=== PATIENT | male | born 1950 | race Caucasian/White ===

== ENCOUNTER 2016-07-23 11:36 | Day surgery (SDC) | payer OTHER ==
[2016-07-21 15:40] VITALS: BMI 30.7
[~2016-07-23 11:36] MED LIST: LACTATED RINGERS 1,000 ML IV SCH; LIDOCAINE 1% 20 ML VIAL (10MG/ML) FOR IV START INTRADERMA PRN
[2016-07-23 12:11] VITALS: TEMP 98
[2016-07-23] MEDS ORDERED: LACTATED RINGERS 1,000 ML IV ONE (12:11)
[2016-07-23] MEDS ORDERED: PROPOFOL 10 MG/ML 20 ML VIAL IV ONE (12:41)
[2016-07-23] MEDS ORDERED: LIDOCAINE 1% INJ 10MG/ML (20 ML MDV) ONE (12:41)
--- NOTE | 2016-07-23 13:00 | P.PCN ---
Date of Procedure: 07/23/16 Preoperative Diagnosis: Postoperative Diagnosis: Procedure(s) Performed: BRIEF HISTORY: Patient is a 66-year-old pleasant white male scheduled for an elective colonoscopy as a part of screening for colorectal neoplasia. PROCEDURE PERFORMED: Colonoscopy with snare polypectomy. PREOPERATIVE DIAGNOSIS: Screening for colon cancer. IV sedation per Anesthesia. PROCEDURE: After informed consent was obtained, the patient, was brought into the endoscopy unit. IV sedation was administered by Anesthesia under continuous monitoring. Digital rectal examination was normal. Initially the Olympus CF- 160 flexible video colonoscope was then inserted in the rectum, gradually advanced into the cecum without any difficulty. Careful examination was performed as the scope was gradually being withdrawn. Ileocecal valve and the appendiceal orifice were visualized and appeared normal. Prep was excellent. Mucosa of the cecum, ascending colon, appeared normal. In the proximal transverse colon there was a 1 cm polyp removed by snare polypectomy. In the descending colon there were 2 polyps measuring 5 mm in size both of which were removed by snare polypectomy. The rest of the transverse colon, descending colon, sigmoid colon, and rectum appeared normal. Retroflexion was performed in the rectum and no lesions were seen. The patient tolerated the procedure well. IMPRESSION: 1 cm proximal transverse colon polyp status post polypectomy 5 mm 2 descending colon polyps status post polypectomy RECOMMENDATIONS: Findings of this examination were discussed with the patient as well as his family. He was advised to follow with the biopsy results. If the biopsy shows a tubular adenoma he can have a repeat colonoscopy in 5 years. Implants: Indications for Procedure: Operative Findings: Description of Procedure:
[2016-07-23 13:07] VITALS: RESP 16
[2016-07-23 13:32] VITALS: BP 152/87; PULSE 68
== END 2016-07-23 13:42 | disposition home or self-care (01) ==
LOC: ORWHC2ENDO 11:36
PROVIDERS: ATTEND Internal Medicine Gastroenterology
DX: Z12.11 Encounter for screening for malignant neoplasm of colon (principal); D12.4 Benign neoplasm of descending colon; D12.3 Benign neoplasm of transverse colon; I10 Essential (primary) hypertension; E78.5 Hyperlipidemia, unspecified; M06.9 Rheumatoid arthritis, unspecified; Z79.891 Long term (current) use of opiate analgesic; Z79.899 Other long term (current) drug therapy
CPT/HCPCS: 88305; 45385; J2001; J2704

== ENCOUNTER → 2020-03-29 | Outpatient (CLI) | payer MEDICARE ==
[2020-03-29 12:43] LABS: HCT 43.8 % (39.0-53.0); HGB 14.6 gm/dL (13.0-17.5); MCH 31.7 pg (25.0-35.0); MCHC 33.5 g/dL (31.0-37.0); MCV 94.9 fL (80.0-100.0); Mean Platelet Volume 6.5; Platelet Count 227 k/uL (150-450); RBC 4.61 m/uL (4.30-5.90); RDW 14.1 % (11.5-15.5)
[2020-03-29 12:54] LABS: ALT 31 U/L (4-49); AST 39 U/L (17-59); African American GFR (CKD) >90 (>60 ml/min/1.73 sqM); Albumin 4.4 g/dL (3.5-5.0); Alkaline Phosphatase 76 U/L (38-126); Anion Gap 6 mmol/L; Blood Urea Nitrogen 16 mg/dL (9-20); Calcium 9.6 mg/dL (8.4-10.2); Carbon Dioxide 29 mmol/L (22-30); Chloride 102 mmol/L (98-107); Glucose 100 mg/dL (74-99); Non-African American GFR(CKD) >90 (>60 ml/min/1.73 sqM); Potassium 4.8 mmol/L (3.5-5.1); Sodium 137 mmol/L (137-145); Total Bilirubin 1.2 mg/dL (0.2-1.3); Total Protein 7.2 g/dL (6.3-8.2)
[2020-03-29 13:02] LABS: INR 0.9 (<1.2); Prothrombin Time 9.5 sec (9.0-12.0)
[2020-03-29 13:21] LABS: Appearance,Urine Clear (Clear); Bilirubin,Urine Negative (Negative); Blood,Urine Small (Negative); Color,Urine Yellow; Glucose,Urine (UA) Negative (Negative); Ketones,Urine Negative (Negative); Leukocyte Esterase,Urine Negative (Negative); Mucus,Urine Rare /hpf; Nitrite,Urine Negative (Negative); PH, Urine 5.5 (5.0-8.0); Protein,Urine Negative (Negative); RBC,Urine <1 /hpf (0-5); Specific Gravity,Urine 1.012 (1.001-1.035); Squamous Epithelial Cell,Urine <1 /hpf (0-4); Urobilinogen,Urine <2.0 mg/dL (<2.0); WBC,Urine 1 /hpf (0-5)
[2020-03-29 14:15] LABS: Partial Thromboplastin Time 20.7 sec (22.0-30.0)
== END | disposition home or self-care (01) ==
LOC: LABPAT 10:50
PROVIDERS: ATTEND Orthopaedic Surgery
DX: Z01.818 Encounter for other preprocedural examination (principal); Z01.812 Encounter for preprocedural laboratory examination
CPT/HCPCS: 36415; 80053; 81001; 85027; 85610; 85730; 87070

== ENCOUNTER 2020-04-09 07:18 | Day surgery (SDC) | payer MEDICARE ==
[2020-04-04 15:46] VITALS: BMI 31.3
[~2020-04-09 07:18] MED LIST changes: +ACETAMINOPHEN TAB 500 MG TAB PO PRN; +DEXAMETHASONE SOD PHOSPHATE 4 MG/ML 1 ML VIAL IV ONE; +GABAPENTIN 300 MG CAP PO PRN; +HYDROmorphone 0.5 MG/0.5 ML SYRINGE IVP PRN; +LIDOCAINE 1% (10MG/ML) FOR IV START INTRADERMA PRN; -LIDOCAINE 1% 20 ML VIAL (10MG/ML) FOR IV START INTRADERMA PRN; +MELOXICAM 7.5 MG TAB PO PRN; +MIDAZOLAM 2 MG/2 ML VIAL IV PRN; +ONDANSETRON 4 MG/2 ML VIAL IVP ONE; +TRANEXAMIC ACID 1,000 MG in SODIUM CHLORIDE 0.9% 100 ML IVPB PRN; +fentaNYL (PF) 50 MCG/ML 2 ML AMP IV PRN
[2020-04-09] MEDS ORDERED: fentaNYL (PF) 50 MCG/ML 2 ML AMP IV ONE (08:19)
[2020-04-09] MEDS ORDERED: MIDAZOLAM 2 MG/2 ML VIAL IV ONE (08:19)
[2020-04-09] MEDS: ROPIVACAINE 246.25 MG, EPINEPHrine 0.5 MG, KETOROLAC 30 MG, cloNIDine HCL/PF 80 MCG, WA... MISCELLANE PRN ×15 (09:01→10:42)
[2020-04-09] MEDS ORDERED: HYDROmorphone 0.5 MG/0.5 ML SYRINGE IVP PRN ×2 (09:11)
[2020-04-09] MEDS ORDERED: ONDANSETRON 4 MG/2 ML VIAL IVP PRN (09:11)
[2020-04-09] MEDS ORDERED: NALOXONE 0.4 MG/ML 1 ML VIAL IV PRN (09:11)
[2020-04-09] MEDS ORDERED: HYDROmorphone 0.2 MG/1 ML SYRINGE IVP PRN (09:11)
[2020-04-09] MEDS ORDERED: HYDROcodone/APAP 7.5-325MG 1 EACH TAB PO PRN ×2 (09:13)
[2020-04-09] MEDS ORDERED: SODIUM CHLORIDE 0.9% 1,000 ML IV SCH (09:15)
[2020-04-09] MEDS ORDERED: LIDOCAINE 1% INJ 10MG/ML (20 ML MDV) ONE (09:23)
[2020-04-09] MEDS ORDERED: METOPROLOL TARTRATE 5 MG/5 ML VIAL IVP ONE (09:23)
[2020-04-09] MEDS ORDERED: SODIUM CHLORIDE 0.9% IRRIG 1,000 ML BTL IRRIGATION ONE (09:23)
[2020-04-09] MEDS ORDERED: TRANEXAMIC ACID 1,000 MG/10 ML VIAL ONE (09:23)
[2020-04-09] MEDS ORDERED: HEPARIN SODIUM,PORCINE 10,000 UNIT/ML 1 ML VIAL ONE (09:23)
[2020-04-09] MEDS ORDERED: MIDAZOLAM 2 MG/2 ML VIAL ONE ×2 (09:23→10:10)
[2020-04-09] MEDS ORDERED: HYDROmorphone (PF) 1 MG/ML ONE (09:23)
[2020-04-09] MEDS ORDERED: fentaNYL (PF) 50 MCG/ML 2 ML AMP ONE (09:23)
[2020-04-09] MEDS ORDERED: SODIUM CHLORIDE 0.9% 100 ML BAG ONE (09:23)
[2020-04-09] MEDS ORDERED: ROCURONIUM 10 MG/ML (5 ML VIAL) IV ONE ×2 (09:23→10:10)
[2020-04-09] MEDS ORDERED: PROPOFOL 10 MG/ML 20 ML VIAL IV ONE ×2 (09:23→10:10)
[2020-04-09] MEDS ORDERED: ceFAZolin 3,000 MG in SODIUM CHLORIDE 0.9% IRRIGATIO 3,000 ML IRRIGATION ONE (09:28)
--- NOTE | 2020-04-09 10:48 | P.OP ---
Date of Procedure: 04/09/20 Preoperative Diagnosis: Severe osteoarthritis right hip Postoperative Diagnosis: Severe osteoarthritis right hip Procedure(s) Performed: Right total hip arthroplasty with a direct anterior approach Implants: [employer] Polarstem standard size 4 [employer] R3, 3 hole hemispherical acetabular shell, 52 mm [employer] Reflection 6.5 mm cancellus screw, 20 mm 2 [employer] R3, XLPE 20 acetabular liner [employer]hew Oxinium femoral head 36 m, +0 All components were press-fit. The articulation is Oxinium on polyethylene. Anesthesia: GETA Surgeon: Jerardo Torres Retail Cashier #1: Ira Herrera Estimated Blood Loss (ml): 250 (65 mL returned with Cell Saver) Pathology: other (Femoral head) Condition: stable Disposition: PACU Indications for Procedure: After failure of conservative treatment we discussed the surgical and nonsurgical treatment options at length. Patient wishes to proceed with a total hip arthroplasty with a direct anterior approach. Complications specific to this procedure were discussed at length, including but not limited to infection, leg length discrepancy, dislocation, nerve injury, and fracture. Covid-19 was also discussed at length with the patient, and they are aware of the current policies and procedures. The patient was given the option of delaying surgery, but they elect to proceed knowing these risks. Patient is aware of all these complications and informed consent was obtained Operative Findings: The operative findings are consistent with severe osteoarthritis of the right hip Description of Procedure: Patient was seen and evaluated in the preoperative area and the consent was reviewed. The operative site was marked with a skin marker. The patient was then brought to the operating room and given preoperative antibiotics intravenously. 1 g of Tranexamic acid was also given intravenously. A general anesthetic was administered by the anesthesia department. The patient was then placed on the [place] table with the bony prominences well-padded. The hip area was then prepped with a ChloraPrep solution and draped in the usual sterile fashion. A universal timeout was then performed, which confirmed the patient's name, surgical site, ALLERGIES, and procedure being performed on the consent. Next the incision site was located at the flexion crease of the right hip. The skin and subcutaneous tissues were sharply incised. Incision was carefully dissected down to the fascia overlying the tensor fascia luis muscle. This fascia was then incised in line with the incision. Care was taken to stay laterally in order to avoid injuring the lateral femoral cutaneous nerve. Next, using blunt finger dissection, the tensor fascia luis muscle was dissected off its investing fascia. The muscle was then carefully retracted laterally with a cobra retractor over the lateral neck of the femur. Next, the circumflex vessels were identified and cauterized using the AquaMantis device. The anterior hip capsule was then exposed. The capsule was then opened and an inverted T fashion. Cobra retractors were then placed intracapsularly. The retractors were maintained intracapsular throughout the procedure. The proximal femur was then visualized. A small amount of traction was placed on the leg. The femoral neck was then osteotomized appropriate level above the lesser trochanter. A small wedge of bone was then removed from the remaining femoral head. Next, using a corkscrew the femoral head was removed from the acetabulum. On gross visual inspection, the femoral head had complete loss of articular cartilage and multiple periarticular osteophytes. The femoral head was then measured. Attention was then turned to the acetabulum. The acetabulum was exposed and any remaining labrum was excised. Sequential reaming of the acetabulum was performed using fluoroscopic guidance until there was a good bed of bleeding cancellus bone. When the appropriate size was reached, a trial was then placed. The position and fit of the trial was checked with fluoroscopy. The trial was then removed. Then, using fluoroscopic guidance, the final implant was impacted at 20 of anteversion and 40 of abduction, and fully seated in the acetabulum. 2 screws were then placed in the acetabulum. Again fluoroscopy was used to check position of the screws. Next, the liner was then impacted, with a 20 elevated liner located in the anterior superior quadrant. Component locking was confirmed. Attention was then directed to the femur. With the aid of the [place] table, the femur was externally rotated to approximately 130, extended, and adducted under the opposite leg. A side hook was then placed under the proximal femur, and the side hook elevator was used to elevate the proximal femur while releasing the capsule. Retractors were then placed. A capsular release was performed, as well as a release of the conjoined tendon, which afforded excellent visualization of the proximal femur. Next, a box osteotome was used to lateralize the proximal femur. A plug shaper hand was then used to locate the femoral canal. Sequential broaching was then performed with appropriate size w hich afforded excellent fixation in the proximal femur. A trial was then placed with appropriate head and neck, and the hip was gently reduced with the aid of the [place] table. Fluoroscopy was then used to check position of the components, as well as to ensure equal leg lengths. The hip was then gently dislocated and the trials were then removed. Final implants were then impacted and the hip was again reduced. Final fluoroscopic x-rays confirmed that the components were in anatomic position, as well as equal leg lengths. The hip was also taken through range of motion, and found to be stable. The hip was then copiously irrigated with antibiotic solution with pulsatile lavage. The hip was then irrigated with Irrisept solution. The soft tissues were then injected with a ropivacaine solution, which consisted of 246.25 mg of ropivacaine, 0.5 mg of epinephrine, 30 mg of Toradol, 80 g of clonidine, and 48.45 mL of sterile water, for a total of 100 mL of fluid injected. A second dose of 1 g of Tranexamic acid was also given intravenously. Any blood collected by Cell Saver was then returned to the patient at this time. The fascia was then closed with 2-0 strata fix suture. The subcutaneous tissue was closed with 3-0 Vicryl. The subcuticular tissue was closed with 3-0 strata fix suture. The skin was then closed with Exofin skin glue. After the glue and dried, and Optifoam silver impregnated dressing was applied. The patient was then transferred to the recovery room in stable condition. The lead dental assistant DIANA Lopez was required due to the complexity of surgery, and the need for skilled insurance sales assistant for positioning, draping, exposure, retraction, and closure of the wound.
[2020-04-09 11:14] VITALS: TEMP 97
--- NOTE | 2020-04-09 11:14 | XR ---
EXAMINATION TYPE: XR Hip Limited RT, FL guidance operating room DATE OF EXAM: 04/09/2020 Comparison: None Clinical History: 69-year-old male RT ANTERIOR HIP Findings: Intraoperative fluoroscopic images demonstrating right apical arthroplasty. FLUOROSCOPY Fluoroscopy time of 16 seconds was used during right hip replacement. 2 image/s document/s ulises cantor. Impression: Intraoperative fluoroscopy as above.
--- NOTE | 2020-04-09 11:43 | XR ---
EXAMINATION TYPE: XR Hip Limited RT DATE OF EXAM: 04/09/2020 Comparison: None Clinical History: 69-year-old male Status post hip surgery, assess surgical alignment Findings: Postoperative change of right hip arthroplasty. Both the acetabular cup and femoral stem components o f the prosthesis are well seated without periprosthetic fracture. Alignment grossly anatomic. Scatter ed soft tissue air. Impression: Uncomplicated postoperative appearance right total hip arthroplasty.
[2020-04-09 12:59] VITALS: RESP 18
[2020-04-09 14:42] VITALS: BP 138/81; PULSE 85
== END 2020-04-09 15:44 | disposition home health service (06) ==
LOC: OR 07:18
PROVIDERS: ATTEND Orthopaedic Surgery
DX: M16.11 Unilateral primary osteoarthritis, right hip (principal); D75.89 Other specified diseases of blood and blood-forming organs; M25.751 Osteophyte, right hip; I10 Essential (primary) hypertension; H91.90 Unspecified hearing loss, unspecified ear; M25.512 Pain in left shoulder; R79.9 Abnormal finding of blood chemistry, unspecified; M06.9 Rheumatoid arthritis, unspecified; M54.5 Low back pain; R00.1 Bradycardia, unspecified; Z79.899 Other long term (current) drug therapy; Z79.52 Long term (current) use of systemic steroids; Z97.3 Presence of spectacles and contact lenses; Z87.891 Personal history of nicotine dependence; Z98.890 Other specified postprocedural states; Z79.1 Long term (current) use of non-steroidal anti-inflammatories (NSAID); Z96.659 Presence of unspecified artificial knee joint; Z98.41 Cataract extraction status, right eye; Z98.42 Cataract extraction status, left eye; Z82.49 Family history of ischemic heart disease and other diseases of the circulatory system; Z80.9 Family history of malignant neoplasm, unspecified
CPT/HCPCS: 97162; 86891; 88305; 88311; 73501; 27130; C1776; J2250; J0171; J1644; J1100; J0690 ×2; J2405; J2001; J3010; J1885; J1170; J2795; J2704; J0735; 86850; 86900; 86901

== ENCOUNTER 2020-05-31 10:20 | Emergency (ER) | payer MEDICARE ==
[2020-05-31] MEDS ORDERED: ACETAMINOPHEN TAB 500 MG TAB PO STA (11:22)
[2020-05-31] MEDS ORDERED: IBUPROFEN 600 MG TAB PO STA (11:23)
[2020-05-31 12:01] LABS: ALT 46 U/L (4-49); African American GFR (CKD) >90 (>60 ml/min/1.73 sqM); Albumin 3.5 g/dL (3.5-5.0); Anion Gap 10 mmol/L; Blood Urea Nitrogen 15 mg/dL (9-20); C Reactive Protein 75.7 mg/L (<10.0); Calcium 8.4 mg/dL (8.4-10.2); Carbon Dioxide 24 mmol/L (22-30); Chloride 92 mmol/L (98-107); Glucose 108 mg/dL (74-99); Non-African American GFR(CKD) >90 (>60 ml/min/1.73 sqM); Sodium 126 mmol/L (137-145); Total Bilirubin 1.2 mg/dL (0.2-1.3); Total Protein 6.7 g/dL (6.3-8.2)
[2020-05-31 12:11] LABS: Alkaline Phosphatase 88 U/L (38-126); Magnesium 1.8 mg/dL (1.6-2.3); Potassium 4.6 mmol/L (3.5-5.1)
--- NOTE | 2020-05-31 12:11 | ED ---
SOB HPI - General Chief Complaint: Shortness of Breath Stated Complaint: Covid +, SOB Time Seen by Provider: 05/31/20 11:17 Source: patient Mode of arrival: ambulatory Limitations: no limitations - History of Present Illness Initial Comments: Patient is a 70-year-old male with history of hypertension, presenting to the emergency Department with complaints of worsening shortness of breath. He states he was exposed to covid a few weeks ago, started having symptoms about 14 days ago. He states he was having some intermittent fevers, some mild cough and shortness of breath. He continues to have a low-grade fever, some nausea, diarrhea. He denies any chest pains. He denies any abdominal pains. He states his appetite continues to be low, he has been trying to drink a lot of water. He took some Tylenol very early this morning. He has no further complaints at this time. Upon arrival to the ER, he is febrile to 102, tachycardia at 115, 93% on room air. - Related Data Home Medications Medication Instructions Recorded Confirmed lisinopriL 20 mg PO HS 04/04/20 04/04/20 Previous Rx's Medication Instructions Recorded Aspirin 325 mg PO BID #60 tab 04/09/20 Celecoxib [CeleBREX] 200 mg PO DAILY 5 Days #5 capsule 04/09/20 Gabapentin 300 mg PO BID 5 Days #10 cap 04/09/20 HYDROcodone/APAP 7.5-325MG [[place] 1 - 2 tab PO Q6H PRN #32 tab 04/09/20 7.5-325] Ondansetron [Zofran ODT] 4 mg PO Q8HR PRN #10 tab 04/09/20 Sennosides [Senokot] 2 tab PO DAILY PRN #60 tablet 04/09/20 Dexamethasone [Decadron] 6 mg PO DAILY 7 Days #7 tablet 05/31/20 Allergies Allergy/AdvReac Type Severity Reaction Status Date / Time No Known Allergies Allergy Verified 05/31/20 10:32 Review of Systems ROS Statement: Those systems with pertinent positive or pertinent negative responses have been documented in the HPI. ROS Other: All systems not noted in ROS Statement are negative. Past Medical History Past Medical History: Hyperlipidemia, Hypertension, Rheumatoid Arthritis (RA) Additional Past Medical History / Comment(s): no Rx for tx b/p History of Any Multi-Drug Resistant Organisms: None Reported Past Surgical History: Orthopedic Surgery Additional Past Surgical History / Comment(s): rt knee arthroscopy,colonoscopy Past Anesthesia/Blood Transfusion Reactions: No Reported Reaction Additional Past Anesthesia/Blood Transfusion Reaction / Comment(s): no hx blood transfusion Past Psychological History: Anxiety, Depression Smoking Status: Never smoker Past Alcohol Use History: None Reported, Heavy Past Drug Use History: None Reported - Past Family History Mother Family Medical History: Cancer Father Family Medical History: Cancer General Exam - General Exam Comments Initial Comments: GENERAL: Patient is well-developed and well-nourished. Patient is nontoxic and in no acute distress. HEAD: Atraumatic, normocephalic. EYES: Pupils equal round and reactive to light, extraocular movements intact, sclera anicteric, conjunctiva are normal. Eyelids were unremarkable. ENT: TMs normal, nares patent, oropharynx clear without exudates. Moist mucous membranes. NECK: Normal range of motion, supple without lymphadenopathy or JVD. LUNGS: Unlabored respirations. Breath sounds clear to auscultation bilaterally and equal. No wheezes rales or rhonchi. HEART: Tachycardia rate and rhythm without murmurs, rubs or gallops. ABDOMEN: Soft, nontender, normoactive bowel sounds. No guarding, no rebound. No masses appreciated. : Deferred MUSCULOSKELETAL: Normal extremities with adequate strength and normal range of motion, no pitting or edema. No clubbing or cyanosis. NEUROLOGICAL: Patient is alert and oriented x 3. Motor and sensory are also intact. Cranial nerves II through XII grossly intact. Symmetrical smile. Normal speech, normal gait. PSYCH: Normal mood, normal affect. SKIN: Warm, Dry, normal turgor, no rashes or lesions noted. Limitations: no limitations Course Vital Signs 05/31/20 05/31/20 05/31/20 10:32 12:52 14:44 Temperature 102 F H 101.3 F H Pulse Rate 115 H 103 H Respiratory 24 20 Rate Blood Pressure 144/74 134/81 O2 Sat by Pulse 93 L 95 91 L Oximetry Medical Decision Making - Medical Decision Making Patient is a 70-year-old male with history of hypertension, presenting today with 2 weeks of covert symptoms, increasing shortness of breath. He continues to have fevers as well. He did arrive febrile, tachycardia today, 93% on room air. Patient's labs show a normal white count, sodium was slightly low at 126, lactic acid was normal, LDH and CRP are elevated, rapid Covid is positive. Chest x-ray shows scattered peripheral infiltrates. She was initially started on 2 L of O2 but we did take him off this, he ambulated without difficulties, stayed at approximately 91-92% in room air. He was given a liter fluids, Zofran and Tylenol and Motrin. He does report improvement in symptoms. Patient will also be given IV steroids. I will continue him on steroids for the next 7 days. He is stable for discharge at this time. Strict return parameters were discussed with the patient and he verbalized understanding. Patient is in agreement with this plan of care. Case discussed with Dr. Ramirez. - Lab Data Result diagrams: 05/31/20 11:34 05/31/20 11:34 Lab Results 05/31/20 05/31/20 05/31/20 Range/Units 10:36 11:34 11:34 WBC 6.8 (3.8-10.6) k/uL RBC 5.32 (4.30-5.90) m/uL Hgb 15.5 (13.0-17.5) gm/dL Hct 46.4 (39.0-53.0) % MCV 87.2 D (80.0-100.0) fL MCH 29.1 (25.0-35.0) pg MCHC 33.4 (31.0-37.0) g/dL RDW 14.5 (11.5-15.5) % Plt Count 246 (150-450) k/uL MPV 7.7 Neutrophils % 81 % Lymphocytes % 8 % Monocytes % 6 % Eosinophils % 0 % Basophils % 0 % Neutrophils # 5.5 (1.3-7.7) k/uL Lymphocytes # 0.6 L (1.0-4.8) k/uL Monocytes # 0.4 (0-1.0) k/uL Eosinophils # 0.0 (0-0.7) k/uL Basophils # 0.0 (0-0.2) k/uL PT 10.2 (9.0-12.0) sec INR 0.9 (<1.2) APTT 23.9 (22.0-30.0) sec Sodium (137-145) mmol/L Potassium (3.5-5.1) mmol/L Chloride (98-107) mmol/L Carbon Dioxide (22-30) mmol/L Anion Gap mmol/L BUN (9-20) mg/dL Creatinine (0.66-1.25) mg/dL Est GFR (CKD-EPI)AfAm (>60 ml/min/1.73 sqM) Est GFR (CKD-EPI)NonAf (>60 ml/min/1.73 sqM) Glucose (74-99) mg/dL Plasma Lactic Acid Tom (0.7-2.0) mmol/L Calcium (8.4-10.2) mg/dL Magnesium (1.6-2.3) mg/dL Total Bilirubin (0.2-1.3) mg/dL AST (17-59) U/L ALT (4-49) U/L Alkaline Phosphatase (38-126) U/L Lactate Dehydrogenase (313-618) U/L C-Reactive Protein (<10.0) mg/L Total Protein (6.3-8.2) g/dL Albumin (3.5-5.0) g/dL Coronavirus (PCR) Detected A (Not Detectd) 05/31/20 05/31/20 Range/Units 11:34 11:34 WBC (3.8-10.6) k/uL RBC (4.30-5.90) m/uL Hgb (13.0-17.5) gm/dL Hct (39.0-53.0) % MCV (80.0-100.0) fL MCH (25.0-35.0) pg MCHC (31.0-37.0) g/dL RDW (11.5-15.5) % Plt Count (150-450) k/uL MPV Neutrophils % % Lymphocytes % % Monocytes % % Eosinophils % % Basophils % % Neutrophils # (1.3-7.7) k/uL Lymphocytes # (1.0-4.8) k/uL Monocytes # (0-1.0) k/uL Eosinophils # (0-0.7) k/uL Basophils # (0-0.2) k/uL PT (9.0-12.0) sec INR (<1.2) APTT (22.0-30.0) sec Sodium 126 L (137-145) mmol/L Potassium 4.6 (3.5-5.1) mmol/L Chloride 92 L (98-107) mmol/L Carbon Dioxide 24 (22-30) mmol/L Anion Gap 10 mmol/L BUN 15 (9-20) mg/dL Creatinine 0.76 (0.66-1.25) mg/dL Est GFR (CKD-EPI)AfAm >90 (>60 ml/min/1.73 sqM) Est GFR (CKD-EPI)NonAf >90 (>60 ml/min/1.73 sqM) Glucose 108 H (74-99) mg/dL Plasma Lactic Acid Tom 1.7 (0.7-2.0) mmol/L Calcium 8.4 (8.4-10.2) mg/dL Magnesium 1.8 (1.6-2.3) mg/dL Total Bilirubin 1.2 (0.2-1.3) mg/dL AST 120 H (17-59) U/L ALT 46 (4-49) U/L Alkaline Phosphatase 88 (38-126) U/L Lactate Dehydrogenase 2127 H (313-618) U/L C-Reactive Protein 75.7 H (<10.0) mg/L Total Protein 6.7 (6.3-8.2) g/dL Albumin 3.5 (3.5-5.0) g/dL Coronavirus (PCR) (Not Detectd) - EKG Data EKG Comments: Sinus tach with frequent PVCs, possible left atrial large man, nonspecific ST abnormalities, no signs of acute ischemia. Ventricular rate 109, SC interval 130, QTC 334. Disposition Clinical Impression: Pneumonia due to COVID-19 virus, Hyponatremia Disposition: HOME SELF-CARE Condition: Stable Instructions (If sedation given, give patient instructions): Coronavirus Disease 2019 (COVID-19) Additional Instructions: Please return to the Emergency Department if symptoms worsen or any other concerns. Start oral steroids tomorrow, finish entire course. Increase your fluids and diet as tolerated, broths, Pedialyte. Follow-up with your regular primary doctor. Prescriptions: Dexamethasone [Decadron] 6 mg PO DAILY 7 Days #7 tablet Is patient prescribed a controlled substance at d/c from ED?: No Referrals: Arpit Umaña MD [Primary Care Provider] - 1-2 days Time of Disposition: 14:50
[2020-05-31 12:12] LABS: AST 120 U/L (17-59); LDH 2127 U/L (313-618)
--- NOTE | 2020-05-31 12:19 | XR ---
EXAMINATION TYPE: XR chest 2V DATE OF EXAM: 05/31/2020 COMPARISON: 09/10/2014 INDICATION: Short of breath, cough, vomiting TECHNIQUE: Frontal and lateral views of the chest are obtained. FINDINGS: The heart size is normal. The pulmonary vasculature is normal. Scattered bilateral lung infiltrates are present. This is nonspecific. Correlate for atypical pneumon ia. IMPRESSION: 1. Scattered bibasilar and peripheral infiltrates. Correlate for atypical pneumonia.
[2020-05-31 12:24] LABS: Basophils % (A) 0 %; Eosinophils % (A) 0 %; HCT 46.4 % (39.0-53.0); HGB 15.5 gm/dL (13.0-17.5); Lymphocytes # (A) 0.6 k/uL (1.0-4.8); Lymphocytes % (A) 8 %; MCH 29.1 pg (25.0-35.0); MCHC 33.4 g/dL (31.0-37.0); Mean Platelet Volume 7.7; Monocytes # (A) 0.4 k/uL (0-1.0); Monocytes % (A) 6 %; Neutrophils # (A) 5.5 k/uL (1.3-7.7); Neutrophils % (A) 81 %; Platelet Count 246 k/uL (150-450); RBC 5.32 m/uL (4.30-5.90); RDW 14.5 % (11.5-15.5); WBC 6.8 k/uL (3.8-10.6)
[2020-05-31 12:33] LABS: MCV 87.2 fL (80.0-100.0)
[2020-05-31] MEDS ORDERED: ONDANSETRON 4 MG/2 ML VIAL IVP STA (12:40)
[2020-05-31] MEDS ORDERED: SODIUM CHLORIDE 0.9% 1,000 ML IV STA (12:40)
[2020-05-31 12:41] LABS: INR 0.9 (<1.2); Partial Thromboplastin Time 23.9 sec (22.0-30.0); Prothrombin Time 10.2 sec (9.0-12.0)
[2020-05-31 12:53] VITALS: BP 134/81; PULSE 103; RESP 20; TEMP 101.3
[2020-05-31] MEDS ORDERED: DEXAMETHASONE SOD PHOSPHATE 10 MG/ML 1 ML VIAL IV STA (14:45)
== END 2020-05-31 15:05 | disposition home or self-care (01) ==
LOC: EC 10:20
DX: U07.1 COVID-19 (principal); J12.82 Pneumonia due to coronavirus disease 2019; E87.1 Hypo-osmolality and hyponatremia; I10 Essential (primary) hypertension; R79.82 Elevated C-reactive protein (CRP); R74.02 Elevation of levels of lactic acid dehydrogenase [LDH]; R91.8 Other nonspecific abnormal finding of lung field; Z79.899 Other long term (current) drug therapy
CPT/HCPCS: 36415; 93005; 80053; 83605; 83615; 83735; 85025; 85610; 85730; 86140; 87040; 87635; 71046; 99285; 96374; 96375; 96361 ×2; J1100; J2405

== ENCOUNTER 2020-07-05 09:19 | Day surgery (SDC) | payer MEDICARE ==
[2020-07-04 14:25] VITALS: BMI 29.2
--- NOTE | 2020-07-04 16:05 | HP ---
HISTORY AND PHYSICAL The patient came to the office from Dr. Umaña's office. This gentleman has a history of COVID positive and he was admitted and he was discharged home. Patient developed some discoloration and blister formation of the right foot toes. He has discomfort and pain in the right foot. The patient has a history of hypertension controlled with medication. No history of diabetes. SURGICAL HISTORY: Patient had right hip surgery done in the past. PERSONAL HISTORY: NO KNOWN ALLERGIES. Nonsmoker. PHYSICAL EXAMINATION: On examination, neck is supple. No bruit appreciated. Chest is clear to auscultation. Good entry into both lungs. Abdomen is soft. Vascular examination: Brachial, radial and femoral pulses palpable bilaterally. Popliteal palpable bilaterally. On the right leg, posterior tibial, dorsal pedis by the Doppler. Left foot has palpable PT and DP. The patient has ulceration and the blister formation of the right foot to involving the toes. PLAN: Aortogram with runoff. Risks and complications discussed. MMODL / IJN: [id number] /
[~2020-07-05 09:19] MED LIST changes: -ACETAMINOPHEN TAB 500 MG TAB PO PRN; +ALPRAZolam 0.25 MG TAB PO PRN; +ASPIRIN 325 MG TAB PO PRN; -DEXAMETHASONE SOD PHOSPHATE 4 MG/ML 1 ML VIAL IV ONE; -GABAPENTIN 300 MG CAP PO PRN; -HYDROmorphone 0.5 MG/0.5 ML SYRINGE IVP PRN; -LACTATED RINGERS 1,000 ML IV SCH; -LIDOCAINE 1% (10MG/ML) FOR IV START INTRADERMA PRN; -MELOXICAM 7.5 MG TAB PO PRN; -MIDAZOLAM 2 MG/2 ML VIAL IV PRN; -ONDANSETRON 4 MG/2 ML VIAL IVP ONE; +SODIUM CHLORIDE 0.9% 1,000 ML in EMPTY BAG 1 BAG IV ONE; -TRANEXAMIC ACID 1,000 MG in SODIUM CHLORIDE 0.9% 100 ML IVPB PRN; -fentaNYL (PF) 50 MCG/ML 2 ML AMP IV PRN
[2020-07-05] MEDS ORDERED: SODIUM CHLORIDE 0.9% 1,000 ML IV ONE (09:40)
[2020-07-05 10:00] VITALS: TEMP 97.9
[2020-07-05 10:26] LABS: Basophils % (A) 0 %; Eosinophils # (A) 0.2 k/uL (0-0.7); Eosinophils % (A) 2 %; HGB 12.7 gm/dL (13.0-17.5); Lymphocytes # (A) 1.2 k/uL (1.0-4.8); Lymphocytes % (A) 16 %; MCH 28.2 pg (25.0-35.0); MCHC 31.8 g/dL (31.0-37.0); MCV 88.7 fL (80.0-100.0); Mean Platelet Volume 6.6; Monocytes # (A) 0.6 k/uL (0-1.0); Monocytes % (A) 8 %; Neutrophils # (A) 5.4 k/uL (1.3-7.7); Neutrophils % (A) 71 %; Platelet Count 271 k/uL (150-450); RDW 15.4 % (11.5-15.5); WBC 7.6 k/uL (3.8-10.6)
[2020-07-05 10:28] LABS: African American GFR (CKD) >90 (>60 ml/min/1.73 sqM); Anion Gap 8 mmol/L; Blood Urea Nitrogen 16 mg/dL (9-20); Calcium 9.7 mg/dL (8.4-10.2); Carbon Dioxide 29 mmol/L (22-30); Chloride 101 mmol/L (98-107); Glucose 87 mg/dL (74-99); Non-African American GFR(CKD) >90 (>60 ml/min/1.73 sqM); Potassium 3.9 mmol/L (3.5-5.1); Sodium 138 mmol/L (137-145)
[2020-07-05] MEDS: MIDAZOLAM 2 MG/2 ML VIAL IV ONE ×2 (11:18→11:37)
[2020-07-05] MEDS: fentaNYL (PF) 50 MCG/ML 2 ML AMP IV ONE ×2 (11:18→11:37)
[2020-07-05] MEDS ORDERED: LIDOCAINE 1% INJ 10MG/ML (20 ML MDV) SQ ONE (11:19)
[2020-07-05] MEDS ORDERED: IOPAMIDOL-250 100ML BTL INTRAARTER ONE ×2 (11:59)
--- NOTE | 2020-07-05 13:46 | IR ---
Fluoroscopy HISTORY: Pain in right leg 10.5 minutes fluoroscopy time supplied to the referring clinician. 546 intraoperative C-arm images d ocument the procedure. See dictated report from vascular surgery.
[2020-07-05] MEDS: HYDROcodone/APAP 7.5-325MG 1 EACH TAB PO PRN ×2 (14:15→18:00)
[2020-07-05 17:41] VITALS: BP 119/71; PULSE 88; RESP 16
[2020-07-05] MEDS ORDERED: APIXABAN 5 MG TAB PO SCH (21:00)
[2020-07-05] MEDS ORDERED: GABAPENTIN 100 MG CAP PO SCH (21:00)
[2020-07-05] MEDS ORDERED: CEPHALEXIN 500 MG CAP PO SCH (21:00)
--- NOTE | 2020-07-05 23:28 | OP ---
OPERATIVE REPORT PREOPERATIVE DIAGNOSIS: Peripheral vascular disease with ischemic changes in the right foot toes. POSTOPERATIVE DIAGNOSIS: Peripheral vascular disease with ischemic changes in the right foot toes. PROCEDURE: Aortogram with runoff. This patient has history of being COVID-positive. He developed right foot toe discoloration and ulcer formation. The patient had a study suggestive of right infrapopliteal occlusive disease. PROCEDURE DESCRIPTION: The patient was brought to the slabber and right and left groins were prepped and draped in usual sterile manner. With local and IV sedation, 1% lidocaine was infiltrated in the left groin. Ultrasound-guided micropuncture was introduced in the left common femoral artery. After that, guidewire was passed and a 4-Welsh dilator was advanced on the top of the guidewire. Then we passed a regular guidewire and 5- Welsh sheath was advanced on the top of the guidewire and flushed with heparin saline. After that, the guidewire was passed which was parked at the renal level and a pigtail catheter was advanced on the top of the guidewire. Power injector aortogram was obtained. Both renal arteries were visualized. Aorta was found to be patent. Common iliac artery was found to be patent. External iliac artery was found to be patent. Then we brought the catheter to the junction of bilateral iliac arteries and we did the runoff. Right iliac and common femoral profundae were visualized. The right popliteal artery was visualized. Infrapopliteal vessels were not visualized on the left side. Left iliac, femoral and popliteal SFA were visualized with 3-vessel runoff. Then we passed a guidewire and we selected the right iliac artery and catheters were advanced on top of the guidewire and right leg angio was performed. Popliteal artery on the right side was visualized. Anterior tibial was visualized. Posterior tibial and peroneal were occluded proximally, and distally it was open with multiple collaterals. IMPRESSION: Right anterior tibial and peroneal occluded proximally, and distally open. PLAN: Patient is going home today. The patient will be discharged at 8:00 tonight and advised no heavy lifting. The patient will see me in the office on Wednesday at 10. Patient will continue on [employer]. MMODL / IJN: [id number] /
[2020-07-06] MEDS ORDERED: LYCOPENE 10 MG PO SCH (09:00)
[2020-07-06] MEDS ORDERED: CHOLECALCIFEROL 25 MCG (1000 IU) TABLET PO SCH (09:00)
--- NOTE | 2020-07-11 06:51 | CDI ---
Outpatient Documentation Clarification Form Date: 07/11/20 CDS/Imaging Account Manager Name: Norma Hall Phone: If any questions, call Tila [facility] [employer] [facility] at [phone] Patient Name: Stone Thurman Admit Date: 07/05/20 Discharge Date: 07/05/20 ATTENTION: The [facility] Coding Staff appreciate your assistance in clarifying documentation Please respond to the clarification below the line at the bottoms and electronically sign The [facility] Coding staff with review the response and follow-up if needed. Please Note: Queries are made part of the Legal Health Record. If any questions, please contact the [facility] Dear Dr Juarez, Please provide clarification as to the cause of the occlusive PAD. PAD/PVD is considered unspecified. Greatest specificity is required for medical necessity support. Is an underlying cause of the occlusive PAD one of the following? Arteriosclerotic disease of the arteries Arteritis Necrotic Due to embolism/thrombosis Other - please specify below Thank you for your kind consideration, MTDD
== END 2020-07-05 20:00 | disposition home or self-care (01) ==
LOC: CATHCVL 09:19 → 6NMEDSUR 13:34 → CATHCVL 20:00
PROVIDERS: ATTEND Surgery Vascular Surgery
DX: I70.235 Atherosclerosis of native arteries of right leg with ulceration of other part of foot (principal); L97.519 Non-pressure chronic ulcer of other part of right foot with unspecified severity; I10 Essential (primary) hypertension; M06.9 Rheumatoid arthritis, unspecified; Z96.659 Presence of unspecified artificial knee joint; Z98.890 Other specified postprocedural states; Z80.9 Family history of malignant neoplasm, unspecified; Z87.891 Personal history of nicotine dependence; Z86.16 Personal history of COVID-19; Z79.01 Long term (current) use of anticoagulants; Z79.899 Other long term (current) drug therapy
CPT/HCPCS: 36200; 75625; 75716; 76937; 80048; 85025; 87635; C1769 ×5; C1894; J2250; J2001; J3010; Q9966